=== PATIENT | male | born 1975 | race Asian ===

== ENCOUNTER → 2023-06-06 | Emergency (ER) | payer OTHER ==
[~2023-06-06] MED LIST: KETOROLAC 30 MG/ML INJ ONE; NA CHLORIDE 0.9% 1,000 ML ONE
--- NOTE | 2023-06-06 12:04 | RAD REPORT ---
EXAM DESCRIPTION: RAD - Chest Single View - 06/06/2023 11:58 am CLINICAL HISTORY: CHEST PAIN Chest pain. COMPARISON: No comparisons FINDINGS: Portable technique limits examination quality. The lungs are grossly clear. The heart is normal in size. No displaced fractures. IMPRESSION: No acute intrathoracic process suspected.
[2023-06-06 12:10] LABS: Absolute Eosinophils 0.2 K/uL (0-0.5); Absolute Lymphocytes (CBC) 1.9 K/uL (0.7-4.9); Basophils % 0.1 % (0-1.3); Eosinophils % 5.4 % (0-4.4); Hematocrit 41.1 % (39.6-49.0); Hemoglobin 13.9 g/dL (13.6-17.9); MCV 88.2 fL (80-100); MPV 9.2 fL (7.6-11.3); Platelets 215 thou/uL (152-406); RBC Red Blood Cell Count 4.67 M/uL (4.33-5.43)
[2023-06-06 12:18] LABS: D-Dimer < 215 FEUng/mL (<500); Protime INR 1.02
[2023-06-06 12:31] LABS: Albumin 3.9 g/dL (3.4-5.0); Albumin/Globulin Ratio 1.1 (1.1-1.8); Anion Gap 8.9 mEq/L (5.0-15.0); Bilirubin Direct 0.3 mg/dL (0-0.2); Bilirubin Indirect, Calculated 0.7 mg/dL (0.2-0.8); Globulin 3.4 g/dL (2.3-3.5); Potassium 3.9 mEq/L (3.5-5.1); Protein, Total 7.3 g/dL (6.4-8.2); Troponin High Sensitivity 9.1 pg/mL (<58.9)
[2023-06-06 13:19] LABS: Specific Gravity 1.013 (1.005-1.030); Urine Bacteria None Seen /HPF (<20); Urine Bilirubin NEGATIVE (Negative); Urine Blood Negative (Negative); Urine Clarity Clear (Clear); Urine Color Light-Yellow (Yellow); Urine Glucose NEGATIVE (Negative); Urine Mucus Slight /HPF (None Seen); Urine Protein NEGATIVE (Negative); Urine RBC <5 /HPF (None Seen); Urine Urobilinogen Normal (Normal); Urine pH 6.5 (5.0-7.0)
[2023-06-06 13:57] LABS: Barbiturates NEGATIVE (NEGATIVE); Benzodiazepines NEGATIVE (NEGATIVE); Cocaine NEGATIVE (NEGATIVE); METHAMPHETAM NEGATIVE (NEGATIVE); Methadone NEGATIVE (NEGATIVE); Opiates NEGATIVE (NEGATIVE); Phencyclidine NEGATIVE (NEGATIVE); THC Cannibis NEGATIVE (NEGATIVE)
--- NOTE | 2023-06-06 14:11 | EDPHYS ---
Physician Documentation [facility] Name: Kira Peña Age: 47 yrs Sex: Male : 1975 Arrival Date: 06/06/2023 Time: 11:12 Bed 17 Private MD: ED Physician Francisco Javier Wolfe HPI: 06/05 11:45 This 47 yrs old Male presents to ER via Ambulatory with complaints of Chest Pain cp x 3 Weeks. 11:45 The patient or guardian reports chest pain that is located primarily in the anterior cp chest wall, left. Onset: 3 week(s) ago. The pain radiates to the left arm, the left shoulder. 11:45 Associated signs and symptoms: Pertinent negatives: abdominal pain, cough, diaphoresis, cp dizziness, headache, lower extremity pain, lower extremity swelling, palpitations, shortness of breath, syncope, vomiting. The chest pain is described as sharp. Duration: The patient or guardian reports a single episode, that is still ongoing, and worsening. Modifying factors: the symptoms are aggravated by movement of left arm. Historical: - Allergies: 11:37 No Known Allergies; kd3 - Immunization history:: Adult Immunizations up to date. - Social history:: Smoking status: Patient/guardian denies using tobacco. ROS: 11:50 Cardiovascular: Positive for chest pain, Negative for edema, palpitations, cp 11:50 Eyes: Negative for injury, pain, redness, and discharge, cp 11:50 Constitutional: Negative for body aches, chills, fever, poor PO intake, 11:50 Respiratory: Negative for cough, shortness of breath, wheezing, 11:50 Abdomen/GI: Negative for abdominal pain, vomiting, diarrhea, constipation, 11:50 Back: Negative for radiated pain, cp 11:50 MS/extremity: Positive for pain, Negative for injury or acute deformity, decreased range of motion, paresthesias, 11:50 Neuro: Negative for altered mental status, dizziness, headache, numbness, syncope, weakness, 11:50 All other systems are negative, cp Exam: 11:35 ECG was reviewed by the Attending Physician. cp 11:55 Constitutional: The patient appears in no acute distress, alert, awake, cp non-diaphoretic, non-toxic, well developed, well nourished, 11:55 Head/Face: Normocephalic, atraumatic. cp 11:55 Eyes: Periorbital structures: appear normal, Conjunctiva: normal, no exudate, no injection, Sclera: no appreciated abnormality, Lids and lashes: appear normal, bilaterally, 11:55 ENT: External ear(s): are unremarkable, Nose: is normal, Mouth: Lips: moist, Oral mucosa: pink and intact, moist, Posterior pharynx: Airway: no evidence of obstruction, patent, 11:55 Neck: ROM/movement: pain, that is mild, with any movement, limited range of motion, is not appreciated, Meningeal signs: are not present, nuchal rigidity, is not appreciated, 11:55 Chest/axilla: Inspection: normal, Palpation: is normal, no crepitus, no tenderness, 11:55 Cardiovascular: Rate: bradycardic, Rhythm: regular, Edema: is not appreciated, JVD: is not appreciated, 11:55 Respiratory: the patient does not display signs of respiratory distress, Respirations: normal, no use of accessory muscles, no retractions, labored breathing, is not present, Breath sounds: are clear throughout, no decreased breath sounds, no stridor, no wheezing, 11:55 Abdomen/GI: Inspection: abdomen appears normal, Palpation: abdomen is soft and non-tender, in all quadrants, 11:55 Back: pain, is absent, ROM is normal, 11:55 Neuro: Orientation: to person, place \T\ time. Mentation: is normal, Motor: moves all fours, strength is normal, Sensation: is normal, Vital Signs: 11:35 BP 121 / 72; Pulse 54; Resp 15; Pulse Ox 100% on R/A; Weight 81.65 kg; Height 5 ft. 11 kd3 in. ; Pain 0/10; 11:45 BP 118 / 81; Pulse 62; Resp 16; Pulse Ox 100% on R/A; db 13:30 BP 113 / 80 LA; Pulse 88; db 13:40 BP 111 / 65 RA; Pulse 86; db 14:00 BP 106 / 79; Pulse 69; Resp 18; Pulse Ox 100% on R/A; db 11:35 Body Mass Index 25.10 (81.65 kg, 180.34 cm) kd3 11:35 Pain Scale: Adult kd3 MDM: 11:32 Patient medically screened. 14:10 Data reviewed: vital signs, nurses notes, lab test result(s), EKG, radiologic studies, cp plain films. 14:10 Differential diagnosis: abnormal EKG, acute myocardial infarction, acute pericarditis, cp anxiety, chest wall pain, pericarditis, pleurisy, pneumonia, pneumothorax, pulmonary embolus, stable angina, unstable angina. I considered the following discharge prescriptions or medication management in the emergency department Medications were administered in the Emergency Department. See MAR. 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 Response to treatment: the patient's symptoms have markedly improved after treatment, and as a result, I will discharge patient. Special discussion: Based on the patient's history, exam, and Dx evaluation, there is no indication for emergent intervention or inpatient Tx. It is understood by the patient/guardian that if the Sx's persist or worsen they need to return immediately for re-evaluation. 06/05 11:41 Order name: Basic Metabolic Panel; Complete Time: 12:35 cp 06/05 12:35 Interpretation: Normal except: CL 108; GFR 87. cp 06/05 11:41 Order name: CBC with Diff; Complete Time: 12:35 cp 06/05 13:57 Interpretation: Normal except: EOSINOPHIL % 5.4. cp 06/05 11:41 Order name: D-Dimer; Complete Time: 12:35 cp 06/05 13:34 Interpretation: Reviewed. cp 06/05 11:41 Order name: LFT's; Complete Time: 12:35 cp 06/05 11:41 Order name: Magnesium; Complete Time: 12:35 cp 06/05 11:41 Order name: PT-INR; Complete Time: 12:35 cp 06/05 11:41 Order name: Troponin HS; Complete Time: 12:35 cp 06/05 11:47 Order name: Urinalysis W/Microscopic; Complete Time: 13:34 cp 06/05 11:47 Order name: UDS cp 06/05 11:41 Order name: XRAY Chest (1 view); Complete Time: 12:35 cp 06/05 11:41 Order name: EKG; Complete Time: 11:41 cp 06/05 11:41 Order name: Cardiac monitoring; Complete Time: 12:04 cp 06/05 11:41 Order name: EKG - Nurse/Tech; Complete Time: 11:53 cp 06/05 11:41 Order name: IV Saline Lock; Complete Time: 12:04 cp 06/05 11:41 Order name: Labs collected and sent; Complete Time: 12:04 cp 06/05 11:41 Order name: O2 Per Protocol; Complete Time: 12:04 cp 06/05 11:41 Order name: O2 Sat Monitoring; Complete Time: 12:04 cp 06/05 12:36 Order name: Blood Pressure Recheck: bilateral upper extremity; Complete Time: 13:50 cp EC:35 Rate is 50 beats/min. Rhythm is regular. ME interval is normal. QRS interval is cp prolonged at 106 msec. QT interval is normal. T waves are Inverted in lead aVR. Interpreted by me. Reviewed by me. Administered Medications: 11:58 Drug: NS 0.9% IV 1000 ml IV at 999 ml/hr Per protocol; 1000 mL bolus Route: IV; Rate: db 999 ml/hr; Site: right antecubital; 12:30 Follow up: Response: No adverse reaction db 12:00 Drug: Ketorolac IVP 15 mg IVP once Route: IVP; Site: left antecubital; db 12:30 Follow up: Response: No adverse reaction db Disposition: 06/06 07:13 Co-signature as Attending Physician, Francisco Javier Wolfe MD I reviewed the patient's care rn provided by the Advanced Practice Provider and agree with the diagnosis and treatment plan. Disposition Summary: 06/06/23 14:10 Discharge Ordered Notes: take baby aspirin daily Location: Home cp Problem: new cp Symptoms: have improved cp Condition: Stable cp Diagnosis - Chest pain, unspecified cp Followup: cp - With: Wood Stout MD - When: 2 - 3 days - Reason: Recheck today's complaints Discharge Instructions: - Discharge Summary Sheet cp - Nonspecific Chest Pain, Adult cp - Aspirin and Your Heart cp - Form - Excuse from Work, School, or Physical Activity cp Forms: - Medication Reconciliation Form cp - Thank You Letter cp - Antibiotic Education cp - Prescription Opioid Use cp - Patient Portal Instructions cp - Leadership Thank You Letter cp - Work release form db Prescriptions: - Diclofenac Sodium 75 mg Oral Tablet Sustained Release - take 1 tablet ORAL route 2 times per day; 30 tablet; Refills: 0, Product cp Selection Permitted Signatures: Dispatcher [employer] Francisco Javier Murguia MD MD rn Jadiel Zabala PA PA cp Doucette, Kyli RN RN kd3 Lilian Brice RN RN db
--- NOTE | 2023-06-06 14:11 | ER ---
Nurse's Notes [facility] Name: Kira Peña Age: 47 yrs Sex: Male : 1975 Arrival Date: 06/06/2023 Time: 11:12 Bed 17 Private MD: Diagnosis: Chest pain, unspecified Presentation: 06/05 11:35 Chief complaint: Patient states: I do a lot of physical activity for work and i noticed kd3 some chest pain to the left side of my chest that is worse with movement of my left arm. The pain seems to come and go. I do not have any cardiac history and have not been around anyone sick. It feels sharp when it comes on. Coronavirus screen: Vaccine status: Patient reports receiving the 2nd dose of the covid vaccine. Ebola Screen: No symptoms or risks identified at this time. Initial Sepsis Screen: Does the patient meet any 2 criteria? No. Patient's initial sepsis screen is negative. Does the patient have a suspected source of infection? No. Patient's initial sepsis screen is negative. Risk Assessment: Do you want to hurt yourself or someone else? Patient reports no desire to harm self or others. Onset of symptoms was June 06, 2023. 11:35 Method Of Arrival: Ambulatory kd3 11:35 Acuity: JIM 4 kd3 Triage Assessment: 11:37 General: Appears in no apparent distress. Behavior is calm, cooperative. Pain: kd3 Complains of pain in anterior aspect of left upper chest Pain radiates to left arm. Neuro: Level of Consciousness is awake, alert, obeys commands, Oriented to person, place, time, situation. Cardiovascular: Patient's skin is warm and dry. Respiratory: Airway is patent Trachea midline Respiratory effort is even, unlabored, Respiratory pattern is regular, symmetrical. Historical: - Allergies: 11:37 No Known Allergies; kd3 - Immunization history:: Adult Immunizations up to date. - Social history:: Smoking status: Patient/guardian denies using tobacco. Screenin:05 [facility] ED Fall Risk Assessment (Adult) History of falling in the last 3 months, db including since admission No falls in past 3 months (0 pts) Confusion or Disorientation No (0 pts) Intoxicated or Sedated No (0 pts) Impaired Gait No (0 pts) Mobility Assist Device Used No (0 pt) Altered Elimination No (0 pt) Score/Fall Risk Level 0 - 2 = Low Risk Oriented to surroundings, Maintained a safe environment. Abuse screen: Denies threats or abuse. Denies injuries from another. Nutritional screening: No deficits noted. Tuberculosis screening: No symptoms or risk factors identified. Assessment: 11:37 Reassessment: Patient appears in no apparent distress at this time. Patient and/or db family updated on plan of care and expected duration. Pain level reassessed. Patient is alert, oriented x 3, equal unlabored respirations, skin warm/dry/pink. 12:30 Reassessment: Patient appears in no apparent distress at this time. Patient and/or db family updated on plan of care and expected duration. Pain level reassessed. Patient is alert, oriented x 3, equal unlabored respirations, skin warm/dry/pink. 13:50 Reassessment: Patient appears in no apparent distress at this time. Patient and/or db family updated on plan of care and expected duration. Pain level reassessed. Patient is alert, oriented x 3, equal unlabored respirations, skin warm/dry/pink. Patient states feeling better. Patient states symptoms have improved. General: Appears in no apparent distress. comfortable, Behavior is calm, cooperative. Neuro: Level of Consciousness is awake, alert, obeys commands, Oriented to person, place, time, situation. Cardiovascular: Reports chest pain. 14:33 Reassessment: Patient appears in no apparent distress at this time. Patient and/or db family updated on plan of care and expected duration. Pain level reassessed. Patient is alert, oriented x 3, equal unlabored respirations, skin warm/dry/pink. Vital Signs: 11:35 BP 121 / 72; Pulse 54; Resp 15; Pulse Ox 100% on R/A; Weight 81.65 kg; Height 5 ft. 11 kd3 in. ; Pain 0/10; 11:45 BP 118 / 81; Pulse 62; Resp 16; Pulse Ox 100% on R/A; db 13:30 BP 113 / 80 LA; Pulse 88; db 13:40 BP 111 / 65 RA; Pulse 86; db 14:00 BP 106 / 79; Pulse 69; Resp 18; Pulse Ox 100% on R/A; db 11:35 Body Mass Index 25.10 (81.65 kg, 180.34 cm) kd3 11:35 Pain Scale: Adult kd3 ED Course: 11:16 Patient arrived in ED. rg4 11:17 Jadiel Zabala PA is PHCP. cp 11:17 Francisco Javier Wolfe MD is Attending Physician. cp 11:37 Lilian Brice, RN is Primary Nurse. db 11:37 Triage completed. kd3 11:37 Arm band placed on right wrist. EKG completed in triage. Results shown to MD. kd3 11:38 Client placed on continuous cardiac and pulse oximetry monitoring. NIBP monitoring kd3 applied. satellite project site monitor on. 11:38 EKG done, by ED staff, reviewed by Jadiel DE SOUZA. kd3 11:58 Inserted saline lock: 20 gauge in right antecubital area, using aseptic technique. db Blood collected. 12:00 XRAY Chest (1 view) In Process Unspecified. EDMS 12:05 Patient has correct armband on for positive identification. Bed in low position. Call db light in reach. Side rails up X 1. 13:13 Urine collected: clean catch specimen, clear. db 14:10 Wood Stout MD is Referral Physician. cp 14:33 Provided Education on: DISCHARGE AND FOLLOWUP. db 14:33 No provider procedures requiring assistance completed. IV discontinued, intact, db bleeding controlled, No redness/swelling at site. Administered Medications: 11:58 Drug: NS 0.9% IV 1000 ml IV at 999 ml/hr Per protocol; 1000 mL bolus Route: IV; Rate: db 999 ml/hr; Site: right antecubital; 12:30 Follow up: Response: No adverse reaction db 12:00 Drug: Ketorolac IVP 15 mg IVP once Route: IVP; Site: left antecubital; db 12:30 Follow up: Response: No adverse reaction db Medication: 14:33 VIS not applicable for this client. db Outcome: 14:10 Discharge ordered by MD. cp 14:33 Discharged to home ambulatory, with family, db 14:33 Condition: stable 14:33 Discharge instructions given to patient, Instructed on discharge instructions, follow up and referral plans. Prescriptions given X 1, 14:34 Patient left the ED. db Signatures: Dispatcher [employer] EDNE Jadiel Zabala PA PA cp Garcia, Rubi rg4 Jeana Alva RN RN kd3 Lilian Brice, TEDDY RN db
[2023-06-06 14:59] VITALS: BP 106/79; O2SAT 100
== END ==
LOC: ER 11:12
DX: R07.89 Other chest pain (principal)
CPT/HCPCS: 85025; 81001; 80048; 36415; 83735; 85610; 85379; 80076; 84484; 80307; 71045; J7030; 96374; 99285